=== PATIENT | female | born 1990 | race Caucasian/White ===

== ENCOUNTER 2020-01-04 20:18 | Emergency (ER) | payer OTHER, SELFPAY ==
[2020-01-04 20:18] VITALS: BP 130/86; PULSE 83; RESP 16; TEMP 36.9; O2SAT 99; BMI 21.4
--- NOTE | 2020-01-04 20:32 | XR_ITS ---
PROCEDURE: XR FINGER RT MIN 2V CLINICAL INDICATION: cut Laceration, injury with pain COMPARISON: No exams were available for comparison FINDINGS: No fracture or dislocation. No lytic or blastic change. There is normal mineralization. The joint spaces are well-preserved. No significant degenerative/arthritic changes. No erosive changes evident. Other findings:Bandage artifact is present at the tip of the finger with a soft tissue defect from the laceration. No radiopaque foreign body other than the bandage artifact IMPRESSION: Laceration with soft tissue defect at the tip of the 2nd finger, no acute fracture Dictated by: Virgil Mendez MD 01/05/2020 05:59 Electronically signed by Virgil Mendez MD in [place] 01/05/2020 05:59
--- NOTE | 2020-01-04 20:56 | HMH.EDWNDL ---
ED Disposition Clinical Impression: Laceration Disposition: Home, Self-Care Condition on Discharge: Good Instructions: DI for Laceration Repair -- Finger Additional Instructions: Keep wound clean and dry. Change bandage daily. If you notice signs of infection such as fever, foul-smelling drainage, redness around the finger, follow-up immediately with your primary care doctor, urgent treatment center or emergency department. Follow-up with your primary care provider in 2 to 3 days for reevaluation. Take antibiotics as prescribed. Prescriptions: cephALEXin [Keflex 500mg Cap] 500 mg PO QID 5 Days #20 cap Prescription Printed Referrals: Provider,Referral, [Primary Care Provider] - 3 days - Critical Care Critical Care Time: No Attestation: On 01/04/20, the high probability of a clinically significant, sudden or life threatening deterioration of the following system(s) required my full and direct attention, intervention and personal management. The time I documented below is in addition to time spent performing reported procedures but includes the following listed in this critical care notation. Medical Decision Making - Medical Records Medical records reviewed: Yes: I reviewed the patient's medical records. - Trung Inquiry Pt receiving controlled substance: No Vital Signs: 01/04/20 20:18 Temperature 98.5 F Temperature Source Oral Pulse Rate [Left Radial] 83 Respiratory Rate 16 Blood Pressure [Right Arm] 130/86 Blood Pressure Mean [Right Arm] 100 Blood Pressure Source [Right Arm] Automatic Cuff Blood Pressure Position [Right Arm] Sitting 02 Sat by Pulse Oximetry 99 Oxygen Delivery Method Room Air Orders (Tests/Meds): ED MEDICATIONS Discontinued Medications Generic Name Dose Route Start Last Admin Trade Name Freq PRN Reason Stop Dose Admin Tetanus/Reduced Diphtheria/Acell Pertussis 0.5 ml 01/04/20 20:32 Adacel Tdap 0.5ml Syringe IM 01/04/20 20:33 .ONCE ONE ORDERS Category Date Time Status Finger XR right minimum 2 views [XR finger RT min 2V] Exams 01/04/20 20:32 Taken Stat - Radiology Data #1 Image(s): Finger(s)/Thumb Image Reviewed: Yes I reviewed the patient's radiology image Laceration, no fracture Medical Decision Narrative: Patient with distal flap of skin that was pale with no apparent vascular supply. There was a very thin bridge of skin, skin was removed and wound was bandaged. There did not appear to be a tuft fracture on XR, but given nature of injury will cover her empirically with antibiotics. Follow-up with primary care provider in 2 to 3 days for wound recheck. Tetnus updated. Given wound care instructions, return precautions and discharged home. Of note, patient is penicillin allergy was when she was a child and she does not remember what the incident was. We discussed precautions with this medication and advised her to stop taking Keflex if she notice any symptoms such as rash, difficulty breathing, nausea. Wound/Laceration HPI - General Chief Complaint: Wound/Laceration Stated Complaint: [id number] cut tip of finger Time Seen by Provider: 01/04/20 20:36 Mode of Arrival: Ambulatory Limitations: No Limitations Description of Symptoms (Recalled from ER Triage Doc. 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 pt has a laceration to her right index finger. 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 Complains of pain only at the distal tip of the finger. Tetanus not up-to-date. She applied a cold rag and presents here for evaluation. - Related Data Previous Rx's Medication Instructions Recorded Ibuprofen [Ibuprofen 600mg 600 mg PO Q6HP PRN #30 tab 05/12/19 Tablet
[2020-01-04 21:24] VITALS: BP 127/82; PULSE 83; RESP 16; TEMP 36.9; O2SAT 99
== END 2020-01-04 21:31 | disposition home or self-care (01) ==
PROVIDERS: Emergency Provider Internal Medicine
DX: S61.210A Laceration without foreign body of right index finger without damage to nail, initial encounter (principal); W31.82XA Contact with other commercial machinery, initial encounter; Y92.69 Other specified industrial and construction area as the place of occurrence of the external cause; Y99.0 Civilian activity done for income or pay; Z23 Encounter for immunization; F17.210 Nicotine dependence, cigarettes, uncomplicated
CPT/HCPCS: 12001; 73140; 90471; 90715; 99282

== ENCOUNTER 2022-08-19 17:08 | Emergency (ER) | payer OTHER, SELFPAY ==
[2022-08-19 17:12] VITALS: BP 129/81; PULSE 74; RESP 20; TEMP 36.6; O2SAT 98; BMI 23.8
[2022-08-19 17:37] LABS: Apearance,Urine Clear (Clear); Color,Urine Yellow (Yellow); PH,Urine 5.5 (5.0-8.5)
[2022-08-19 17:38] LABS: Bilirubin,Urine Negative (Negative); Blood, Urine 3+ (Negative); Glucose,Urine (UA) Negative (Negative); Ketones,Urine Negative (Negative); Protein,Urine Negative (Negative); UTC Leukocyte Esterase,Urine 2+ (Negative); UTC Nitrate,Urine Negative (Negative); Urobilinogen,Urine 0.2 EU/dl (0.2)
--- NOTE | 2022-08-19 17:47 | EXP.UTC ---
Discharge Plan Disposition Patient Disposition: Home, Self-Care Condition: Good Prescriptions Prescriptions: New sulfamethoxazole-trimethoprim [Bactrim DS] 800-160 mg tablet 1 tab PO BID Qty: 20 0RF Referrals Follow up/Referrals: Jose Robledo MD [Primary Care Provider] - See instructions Clinical Impressions Clinical Impression: UTI (urinary tract infection), bacterial Instructions Patient Instructions: DI for Urinary Tract Infection (UTI) Discharge ED Provider: Maritza Krishnamurthy [facility] General Stated complaint: Lower back constant pain Mode of Arrival: Ambulatory Source of Information: Patient Limitations: No Limitations Time Seen by Provider: 08/19/22 17:47 Description of Symptoms (Recalled from Triage Doc. by RN): frequent urination, lower back pain, possible UTI HEENT Symptoms (Recalled from RN notes): No Resp Symptoms (Recalled from RN notes): No Skin Symptoms (Recalled from RN notes): No MS Symptoms (Recalled from RN notes): No Functional Status (Recalled from RN notes): n/a Related Data Previous Rx's Medication Instructions Recorded sulfamethoxazole 800 1 tab PO BID #20 tabs 08/19/22 mg-trimethoprim 160 mg tablet (Bactrim DS) Allergies Allergy/AdvReac Type Severity Reaction Status Date / Time azithromycin Allergy Verified 08/19/22 17:36 Penicillins Allergy Verified 08/19/22 17:36 Worker's Comp Is this a Worker's Comp case?: No [facility] Disclaimer: The information contained in this section may have been updated after the patient was seen, as this information can be updated by other users. Social History Smoking Status: Current every day smoker tobacco type: cigarettes packs per day: 1 second hand exposure: Yes alcohol intake: never current occupational status: employed Travel in the last 8 weeks: None housing: house ROS Obtained: Yes All systems reviewed & no additional complaints except as documented Constitutional Constitutional: Reports system reviewed and no additional complaints, except as documented Eyes Eyes: Reports system reviewed and no additional complaints, except as documented ENT Ears, Nose, Mouth, and Throat: Reports system reviewed and no additional complaints, except as documented Cardiovascular Cardiovascular: Reports system reviewed and no additional complaints, except as documented Respiratory Respiratory: Reports system reviewed and no additional complaints, except as documented Gastrointestinal Gastrointestingal: Reports system reviewed and no additional complaints, except as documented and abdominal pain Genitourinary Female Genitourinary: Denies dysuria, Reports flank pain, Reports hematuria, Reports pelvic pain, Reports urinary frequency and Reports urinary urgency Musculoskeletal Musculoskeletal: Reports system reviewed and no additional complaints, except as documented Integumentary/Breasts Skin/Breast: Reports system reviewed and no additional complaints, except as documented Neurologic Neurologic: Reports system reviewed and no additional complaints, except as documented Endocrine Endocrine: Reports system reviewed and no additional complaints, except as documented Hematologic/Lymphatic Henatologic/Lymphatic: Reports system reviewed and no additional complaints, except as documented Allergic/Immunologic Allergic/Immunologic: Reports system reviewed and no additional complaints, except as documented Physical Exam General General appearance: alert Comment: pt appears uncomfortable. Unable to keep still. Head Head exam: atraumatic and normocephalic Eye Eye exam: Present normal appearance ENT ENT exam: Present normal exam Neck Neck exam: Present normal inspection Chest Chest inspection: Present normal inspection and symmetric chest wall rise Respiratory Respiratory exam: Present normal lung sounds bilaterally Cardiovascular Cardiovascular exam: Present regular rate Abdominal Exam Abdominal exam: Present soft, tendern
[2022-08-19 18:12] VITALS: BP 129/81; PULSE 74; RESP 20; TEMP 36.7; O2SAT 98
== END 2022-08-19 18:11 | disposition home or self-care (01) ==
PROVIDERS: Emergency Provider Nurse Practitioner Family; PCP Family Medicine
DX: N39.0 Urinary tract infection, site not specified (principal)
CPT/HCPCS: 81003; 87086; 87088; 87186; 99212; 99213; G0463